=== PATIENT | female | born 1980 | race Two or more races ===

== ENCOUNTER 2017-02-13 01:26 | Emergency (ER) | payer MEDICAID, OTHER ==
[~2017-02-13] VITALS: Ht 149.9 cm; Wt 42.2 kg
[~2017-02-13 01:26] MED LIST: NKM; ROBAXIN-750750 MG PO; ZOFRAN ODT4 MG ORAL
[2017-02-13 01:48] VITALS: BP 121/81
[2017-02-13] MEDS ORDERED: ALBUTEROL SULF8.5 GM INH (01:53)
[2017-02-13] MEDS ORDERED: PREDNISONE20 MG ORAL (01:53)
--- NOTE | 2017-02-13 01:53 | Emergency Room Report ---
History of Present Illness General Chief Complaint: Upper Respiratory Illness Source: Patient, Medical Record Present Illness Allergies: Coded Allergies: DIPHENHYDRAMINE (Verified Allergy, Unknown, 05/05/16) PEANUT (Verified Allergy, Unknown, 09/23/16) PENICILLINS (Verified Allergy, Unknown, 05/05/16) Uncoded Allergies: PEANUTS (Allergy, Unknown, 09/23/16) Patient History Past Medical History: see triage record, old chart reviewed Past Surgical History: none Pertinent Family History: none Social History: Denies: smoking Last Menstrual Period: 01/22/17 Now: No : 6 Para: 6 Reviewed Nursing Documentation: PMH: Agreed, PSxH: Agreed Review of Systems Eye: Denies: blurred vision, eye pain ENT: Denies: ear pain, nose congestion, throat swelling Respiratory: Reports: cough, shortness of breath, wheezing Cardiovascular: Denies: chest pain, palpitations Gastrointestinal: Denies: abdominal pain, diarrhea, nausea, vomiting Musculoskeletal: Denies: back pain, joint pain Skin: Denies: rash Neurological: Denies: headache, numbness Endocrine: Denies: increased thirst, increased urine Hematologic/Lymphatic: Denies: easy bruising All Other Systems: negative except mentioned in HPI Physical Exam Vital Signs Date Time Temp Pulse Resp B/P Pulse Ox O2 Delivery O2 Flow Rate FiO2 02/13/17 01:35 98.1 102 22 109/71 95 Room Air vitals normal. Sp02 EP Interpretation: reviewed, normal General Appearance: well appearing, no apparent distress, alert Head: normocephalic, atraumatic Eyes: bilateral eye EOMI, bilateral eye PERRL ENT: hearing grossly normal, normal pharynx Neck: full range of motion, supple, no meningismus Respiratory: chest non-tender, lungs clear, normal breath sounds, other - Patient get coughing fits with inspiration Cardiovascular #1: regular rate, rhythm, no murmur Gastrointestinal: normal bowel sounds, non tender, no mass, no organomegaly, no bruit, non-distended Musculoskeletal: back normal, gait/station normal, normal range of motion Psychiatric: mood/affect normal Skin: warm/dry Medical Decision Making Diagnostic Impression: Primary Impression: Upper respiratory infection Qualified Codes: J06.9 - Acute upper respiratory infection, unspecified; B97.89 - Other viral agents as the cause of diseases classified elsewhere Additional Impression: Acute bronchospasm due to viral infection ER Course Patient presents with a bronchitis with bronchospasm. This is viral in nature. No evidence of pneumonia, sepsis, pneumothorax name a few. Last Vital Signs Date Time Temp Pulse Resp B/P Pulse Ox O2 Delivery O2 Flow Rate FiO2 02/13/17 01:35 98.1 102 22 109/71 95 Room Air Status: improved Disposition: HOME, SELF-CARE Condition: Stable Scripts Prednisone* (PREDNISONE*) 20 Mg Tablet 60 MG ORAL DAILY, #12 TAB Prov: NEELA ARRIETA M.D. 02/13/17 Albuterol Sulfate* (ALBUTEROL SULFATE MDI*) 8.5 Gm Hfa.aer.ad 2 PUFF INH Q4H Y for cough/wheezing, #1 EA 0 Refills Prov: NEELA ARRIETA M.D. 02/13/17 Referrals: [facility] (PCP) Patient Instructions: Upper Respiratory Infection, Adult Additional Instructions: Followup with your Dr. in 2 to 3 days. Return if symptom worsen. NEELA ARRIETA M.D. Feb 13, 2017 01:53
[2017-02-13] MEDS ORDERED: Albuterol ud Inhalation HHN ONE (02:00)
[2017-02-13] MEDS ORDERED: PredniSONE 20mg tab ORAL ONE (02:00)
[2017-02-13] MEDS ORDERED: Ipratropium 0.02% Inh Soln 2.5ml UD HHN ONE (02:00)
[2017-02-13 02:17] VITALS: BP 121/81
== END 2017-02-13 02:17 | disposition home or self-care (01) ==
LOC: EMR 01:40
DX: J06.9 Acute upper respiratory infection, unspecified (principal); B97.89 Other viral agents as the cause of diseases classified elsewhere; J20.8 Acute bronchitis due to other specified organisms; Z88.0 Allergy status to penicillin; Z88.8 Allergy status to other drugs, medicaments and biological substances; Z91.010 Allergy to peanuts
CPT/HCPCS: 94640; 94664; 99284

== ENCOUNTER 2017-08-31 13:56 | Emergency (ER) | payer MEDICAID, OTHER ==
[~2017-08-31] VITALS: Ht 162.6 cm; Wt 54.4 kg
[~2017-08-31 13:56] MED LIST changes: +ALBUTEROL SULF8.5 GM INH; +PREDNISONE20 MG ORAL
[2017-08-31] MEDS ORDERED: Methocarbamol 750mg tab ORAL ONE (14:15)
[2017-08-31] MEDS ORDERED: ROBAXIN-750750 MG PO (14:36)
[2017-08-31] MEDS ORDERED: IBUPROFEN600 MG ORAL (14:36)
[2017-08-31 14:45] VITALS: BP 130/82
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
== END 2017-08-31 14:45 | disposition home or self-care (01) ==
LOC: EMR 14:43
DX: S39.012A Strain of muscle, fascia and tendon of lower back, initial encounter (principal); V09.9XXA Pedestrian injured in unspecified transport accident, initial encounter; Y93.01 Activity, walking, marching and hiking; Y92.414 Local residential or business street as the place of occurrence of the external cause; Z88.0 Allergy status to penicillin; Z91.010 Allergy to peanuts
CPT/HCPCS: 99283

== ENCOUNTER 2017-09-23 10:42 | Emergency (ER) | payer OTHER ==
[~2017-09-23] VITALS: Ht 149.9 cm; Wt 44.5 kg
[~2017-09-23 10:42] MED LIST changes: +IBUPROFEN600 MG ORAL
[2017-09-23] MEDS ORDERED: Acetaminophen 500mg (ES) tab ORAL ONE (11:45)
[2017-09-23] MEDS ORDERED: Metoclopramide 10mg/10ml Liq ORAL ONE (11:45)
[2017-09-23] MEDS ORDERED: ACETAMINOPHEN-1 EAC1 ORAL (13:29)
[2017-09-23] MEDS ORDERED: Norco 5mg/325mg tab ORAL ONE (13:30)
--- NOTE | 2017-09-23 13:36 | Emergency Room Report ---
History of Present Illness General Chief Complaint: Headache Source: Patient Present Illness HPI 37 her old female with headache for one week States headache is behind eyes and frontal forehead Feels like it's "my sinuses" however denies nasal congestion, rhinorrhea No previous history of sinusitis No diagnosed history of tension headache or migraine headaches Denies known mass or previous stroke or previous intracranial hemorrhage or aneurysm Been taking ibuprofen 600 mg every 4 hours with some improvement Pain is constant, at day and night, keeps her awake No neck pain or stiffness, fever or chills or sick contacts Allergies: Coded Allergies: DIPHENHYDRAMINE (Verified Allergy, Unknown, 05/05/16) PEANUT (Verified Allergy, Unknown, 09/23/16) PENICILLINS (Verified Allergy, Unknown, 05/05/16) Uncoded Allergies: PEANUTS (Allergy, Unknown, 09/23/16) Patient History Past Medical History: none Past Surgical History: none Pertinent Family History: none Social History: Denies: smoking, alcohol use, drug use Last Menstrual Period: 08/27/17 Now: No Immunizations: UTD Reviewed Nursing Documentation: PMH: Agreed, PSxH: Agreed Nursing Documentation-PMH Past Medical History: No History, Except For History Of Psychiatric Problem: Yes - Depression, Anxiety Review of Systems All Other Systems: negative except mentioned in HPI Physical Exam Vital Signs Date Time Temp Pulse Resp B/P (MAP) Pulse Ox O2 Delivery O2 Flow Rate FiO2 09/23/17 10:52 99.3 114 20 112/71 98 Room Air Sp02 EP Interpretation: reviewed, normal General Appearance: normal inspection, well appearing, no apparent distress, alert, GCS 15, non-toxic Head: normocephalic, atraumatic Eyes: bilateral eye PERRL, bilateral eye EOMI ENT: normal ENT inspection, hearing grossly normal, normal voice Neck: normal inspection, full range of motion, supple, no bony tend Respiratory: normal inspection, lungs clear, normal breath sounds, no respiratory distress, no retraction, no wheezing Cardiovascular #1: regular rate, rhythm, no edema Gastrointestinal: normal inspection, normal bowel sounds, non tender, soft, no guarding, no hernia Genitourinary: no CVA tenderness Musculoskeletal: normal inspection, back normal, normal range of motion, Natasha' s Sign negative Neurologic: normal inspection, alert, oriented x3, responsive, utility sales representative III-XII nml as tested, speech normal Psychiatric: normal inspection, judgement/insight normal, mood/affect normal Skin: normal inspection, normal color, no rash Medical Decision Making Diagnostic Impression: Primary Impression: Headache Qualified Codes: G44.209 - Tension-type headache, unspecified, not intractable ER Course 37-year-old female with likely tension headache versus migraine headache less likely Given stable vital signs, no focal neurological deficits, and symptoms for one week, and normal CT sinus, unlikely acute intracranial hemorrhage or aneurysm or mass No signs of sinusitis so no need for antibiotics Tylenol with Reglan with some improvement However pain resolved only with narcotics, which I try to avoid Discharge with Tylenol with codeine PMD followup or neurology for recurrent headaches ER course: Patient has remained stable during ED stay. Patient is to be discharged to home. Prescriptions given are T#3 Patient is instructed to follow up with their primary care doctor within 5 days. Strict return precautions discussed with patient such as fever, chills, worsening/severe pain, nausea, vomiting, which may indicate severe illness. Patient verbalizes understanding and agrees with plan. Please note that this Emergency Department Report was dictated using JournalDoc[employer] coordinator technology software, occasionally this can lead to erroneous entry secondary to interpretation by the dictation equipment Last Vital Signs Date Time Temp Pulse Resp B/P (MAP) Pulse Ox O2 Delivery O2 Flow Rate FiO2 09/23/17 10:52 99.3 114 20 112/71 98 Room Air Status: improved Disposition: HOME, SELF-CARE Condition: Improved Scripts Acetaminophen With Codeine (T#3) (TYLENOL #3 TAB*) Y Tab 1 TAB ORAL Q8H Y for headache, #20 TAB Prov: BRYNN PENA M.D. 09/23/17 Referrals: [facility] (PCP) Patient Instructions: Migraine Headache BRYNN PENA M.D. Sep 23, 2017 13:36
[2017-09-23 14:09] VITALS: BP 108/71
--- NOTE | 2017-09-24 09:59 | Diagnostic Imaging Report ---
Indication: Trauma. Facial pain Technique: Continuous helical transaxial imaging of the maxillofacial structures obtained without intravenous contrast administration. Coronal 2-D reformats were also obtained. Study obtained in a Siemens sensation [address] Automatic Exposure Control was utilized. Total Dose length Product (DLP): [address] Dose Index Volume (CTDIvol): .15, 28.19 mGy Comparison: None Findings: There is no evidence of an acute fracture. Paranasal sinuses and mastoids are clear. Soft tissues are unremarkable. Impression: Negative exam The CT scanner at [facility] is accredited by the [employer] and the scans are performed using dose optimization techniques as appropriate to a performed exam including Automatic Exposure control.
== END 2017-09-23 14:05 | disposition home or self-care (01) ==
LOC: EMR 10:49
DX: R51 Headache (principal); F41.9 Anxiety disorder, unspecified; F32.9 Major depressive disorder, single episode, unspecified; Z88.0 Allergy status to penicillin; Z91.010 Allergy to peanuts
CPT/HCPCS: 70486; 99283

== ENCOUNTER 2018-07-23 19:23 | Emergency (ER) | payer OTHER ==
[~2018-07-23] VITALS: Ht 149.9 cm; Wt 43.1 kg
[~2018-07-23 19:23] MED LIST changes: +ACETAMINOPHEN-1 EAC1 ORAL
[2018-07-23 19:40] VITALS: BP 129/87
[2018-07-23] MEDS ORDERED: Albuterol/Ipratropium 3ml neb HHN ONE (20:00)
--- NOTE | 2018-07-23 20:50 | Emergency Room Report ---
History of Present Illness General Chief Complaint: Dyspnea/Respdistress Source: Patient Present Illness HPI Patient is a 38-year-old female who presented after increased difficulty breathing gradual onset for approximately 3 week. The patient prior history of asthma. She reports having increased cough and congestion. She denied any vomiting. She reports having increased the left sided leg pain. She reports having prior history of sciatica. Allergies: Coded Allergies: DIPHENHYDRAMINE (Verified Allergy, Unknown, 05/05/16) PEANUT (Verified Allergy, Unknown, 09/23/16) PENICILLINS (Verified Allergy, Unknown, 05/05/16) Uncoded Allergies: PEANUTS (Allergy, Unknown, 09/23/16) Patient History Past Medical History: see triage record Last Menstrual Period: 06/29/2018 Now: No Reviewed Nursing Documentation: PMH: Agreed; PSxH: Agreed Nursing Documentation-PMH Past Medical History: No Stated History Review of Systems All Other Systems: negative except mentioned in HPI Physical Exam Vital Signs Date Time Temp Pulse Resp B/P (MAP) Pulse Ox O2 Delivery O2 Flow Rate FiO2 07/23/18 19:27 98.7 107 22 129/87 94 Room Air 98.8 07/23/18 19:55 21 Sp02 EP Interpretation: reviewed, normal General Appearance: normal inspection, well appearing, no apparent distress, alert, GCS 15, non-toxic Head: atraumatic ENT: normal ENT inspection, hearing grossly normal, normal voice Neck: normal inspection, full range of motion, supple, no bony tend Respiratory: normal inspection, lungs clear, normal breath sounds, no respiratory distress, no retraction, no wheezing Cardiovascular #1: regular rate, rhythm, no edema Gastrointestinal: normal inspection, normal bowel sounds, non tender, soft, no guarding, no hernia Genitourinary: no CVA tenderness Musculoskeletal: normal inspection, back normal, normal range of motion Neurologic: normal inspection, alert, oriented x3, responsive, foreign language teacher III-XII nml as tested, speech normal Psychiatric: normal inspection, judgement/insight normal, mood/affect normal Skin: normal inspection, normal color, no rash Medical Decision Making Diagnostic Impression: Primary Impression: Bronchitis Additional Impression: Sciatica ER Course Patient is a for cough. Differential diagnosis included but was not limited to bronchitis, pneumonia, pulmonary embolism, pericarditis, asthma, foreign body.Patient was given breathing treatment as well as oral prednisone. The patient was noted to have improvement in her symptoms. Patient was discharged home. She is advised follow-up with her primary care physician for reexamination and treatment.The patient is advised to follow up with primary care doctor. Patient is advised to return if any worsening condition or if any changes in status that are concerning. This report is dictated with Shoto work from home software which may occasionally lead to discrepancies related to use of this software. Labs Test 07/23/18 20:45 Urine HCG, Qualitative Negative (NEGATIVE) Last Vital Signs Date Time Temp Pulse Resp B/P (MAP) Pulse Ox O2 Delivery O2 Flow Rate FiO2 07/23/18 20:07 108 20 99 Room Air 21 07/23/18 19:40 98.8 129/87 98.8 Status: improved Disposition: HOME, SELF-CARE Condition: Stable Scripts Prednisone* (PREDNISONE*) 20 Mg Tablet 40 MG ORAL DAILY, #10 TAB Prov: Sebastian Lagunas MD 07/23/18 Albuterol Sulfate* (ALBUTEROL SULFATE MDI*) 8.5 Gm Hfa.aer.ad 2 PUFF INH Q4H PRN for cough/wheezing, #1 EA 0 Refills Prov: Sebastian Lagunas MD 07/23/18 Sebastian Lagunas MD Jul 23, 2018 20:50
[2018-07-23] MEDS ORDERED: ALBUTEROL SULF8.5 GM INH (21:17)
[2018-07-23] MEDS ORDERED: PREDNISONE20 MG ORAL (21:17)
[2018-07-23 21:35] VITALS: BP 107/72
[2018-07-23 21:40] VITALS: BP 107/72
--- NOTE | 2018-07-24 11:27 | Diagnostic Imaging Report ---
Indication: Shortness of breath Technique: One view of the chest Comparison: 05/05/2016 Findings: Lungs and pleural spaces are clear. Heart size is normal Impression: No acute process
== END 2018-07-23 21:41 | disposition home or self-care (01) ==
LOC: EMR 20:04
DX: J40 Bronchitis, not specified as acute or chronic (principal); M54.30 Sciatica, unspecified side; Z88.0 Allergy status to penicillin; Z91.010 Allergy to peanuts
CPT/HCPCS: 71045; 81025; 94640; 94664; 99284; J7512; J7620

== ENCOUNTER 2020-10-11 21:14 | Emergency (ER) | payer MEDICAID, OTHER ==
[~2020-10-11] VITALS: Ht 162.6 cm; Wt 54.4 kg
--- NOTE | 2020-10-11 21:23 | NUR ---
ED Nurse Note: pt presents to ED c/o toothache x 2 days, pt reports taking 80 mg ibuprofen without relief of pain. pt denies any fevers or chills, states that she thinks there may be a dental abscess there.
[2020-10-11 21:24] VITALS: BP 123/88
[2020-10-11] MEDS ORDERED: Bupivacaine 0.5% Inj 30 ml vial INJ ONE ×2 (21:27→21:30)
[2020-10-11] MEDS ORDERED: CLINDAMYCIN HC300 MG ORAL (21:29)
[2020-10-11 21:35] VITALS: BP 123/88
--- NOTE | 2020-10-11 21:35 | NUR ---
ER DISCHARGE NOTE: Patient is cleared to be discharged per ERMD, pt is aox4, on room air, with stable vital signs. pt was given dc and prescription instructions, pt was able to verbalize understanding, pt id band removed without complications. pt is able to ambulate with steady gait. pt took all belongings.
--- NOTE | 2020-10-11 21:39 | Emergency Room Report ---
History of Present Illness General Chief Complaint: Toothache Source: Patient Present Illness HPI Disclaimer: Please note that this report is being documented using DRAGON technology. This can lead to erroneous entry secondary to incorrect interpretation by the dictating instrument. HPI: This 40-year-old female presenting for evaluation of tooth pain. Patient reports multiple dental caries requiring fillings in the past and several of the fillings have now broken. The fourth tooth she states was fractured several days ago. She put Orajel on that she had from a convenience store. Seeing her dentist in the morning. Has been using ibuprofen but pain is getting more severe and she feels her gum swelling. Has had dental abscesses in the past. She is allergic to penicillins. Denies facial trauma otherwise. Denies fever or chills. Denies throat swelling. No other symptoms or complaints at this time. PMH: Reviewed PSH: Reviewed Allergies: Reviewed Social Hx: Reviewed Allergies: Coded Allergies: DIPHENHYDRAMINE (Verified Allergy, Unknown, 05/05/16) PEANUT (Verified Allergy, Unknown, 09/23/16) PENICILLINS (Verified Allergy, Unknown, 05/05/16) Uncoded Allergies: PEANUTS (Allergy, Unknown, 09/23/16) COVID-19 Screening Contact w/high risk pt: No Experienced COVID-19 symptoms?: No COVID-19 Testing performed BUILDING PRINCIPAL: No Patient History Last Menstrual Period: 10/01/2020 Now: No : 5 Para: 5 Nursing Documentation-PMH Past Medical History: No History, Except For Review of Systems All Other Systems: negative except mentioned in HPI Physical Exam Vital Signs Date Time Temp Pulse Resp B/P (MAP) Pulse Ox O2 Delivery O2 Flow Rate FiO2 10/11/20 21:15 98.1 87 16 123/88 (100) 97 Room Air General: Awake and alert, no acute distress HEENT: NC/AT. EOMI. multiple dental caries. Uvula midline. No throat obstruction. Normal phonation and breathing. Mild gingival edema and erythema over the right upper maxilla. The fourth digit is fractured and there is overlying taste Resp: Normal work of breathing Skin: Intact. No abrasions, laceration or rash over the exposed skin MSK: Normal tone and bulk. Moving all extremities. No obvious deformity. Neuro: Awake and alert. Mentating appropriately Medical Decision Making Diagnostic Impression: Primary Impression: Pain, dental ER Course Is a 40-year-old female presenting for evaluation of dental pain. Has multiple dental caries and recent fracture. Will start on antibiotics. Superior alveolar nerve block performed with good effect on her pain. Use approximately 5 cc 0.5% bupivacaine injected above the fourth tooth. No bleeding. No complications. Patient tolerated procedure well. Instructed to follow with dentistry in the morning. Referred to dental clinics. Otherwise well-appearing and stable for outpatient follow-up. Last Vital Signs Date Time Temp Pulse Resp B/P (MAP) Pulse Ox O2 Delivery O2 Flow Rate FiO2 10/11/20 21:24 98.1 16 123/88 97 Room Air 10/11/20 21:15 87 Disposition: HOME, SELF-CARE Condition: Stable Scripts Clindamycin Hcl (CLINDAMYCIN HCL) 300 Mg Capsule 300 MG ORAL THREE TIMES A DAY, #21 CAP Prov: Homer Manzano MD 10/11/20 Referrals: NON PHYSICIAN (PCP) [facility] INFO: New Patient Screening: Mon- 8am-1pm Mon- 9am -5pm and Mon 2pm-5pm [facility] - [facility] Location: 2nd Floor Room [address] INFO: Mon & Mon-8:30am-4:30pm, - 8:30am - 7pm, - Emergency only, Mon- 8:30am-11:30am and afternoon emergency only [facility] Pediatrics(age 2-12) - Orthodontic Clinic - Hours: Mon,Mon,, 8:15am and 1pm (new patient screening), Tues. 1pm. Emergency clinic Monday - Monday 8:30am and 1pm, Tues. 1pm. *Call to check if clinic is open; No appointment necessary for the first visit (new patient screening), Arrive 15-30 minutes early as it is first come, first serve. Patient Instructions: Dental Pain Additional Instructions: Go to a dentist as soon as possible to evaluate for your fractured tooth. Take antibiotics as prescribed. Continue Tylenol Motrin. Return with new or worsening symptoms. Homer Manzano MD Oct 11, 2020 21:39
== END 2020-10-11 21:35 | disposition home or self-care (01) ==
LOC: EMR 21:25
DX: K08.89 Other specified disorders of teeth and supporting structures (principal); K02.9 Dental caries, unspecified; Z88.0 Allergy status to penicillin; Z91.010 Allergy to peanuts; Z91.09 Other allergy status, other than to drugs and biological substances
CPT/HCPCS: S0020; Z7502; 99282